=== PATIENT | female | born 1955 | race Two or more races ===

== ENCOUNTER 2022-08-24 11:39 | Emergency (ER) | payer MEDICARE, OTHER ==
[~2022-08-24] VITALS: Ht 154.9 cm; Wt 68.9 kg
[2022-08-24] MEDS ORDERED: ACET1CAP14 PO (14:44)
[2022-08-24] MEDS ORDERED: AUG875T PO (14:44)
[2022-08-24] MEDS ORDERED: ACETAMINOPHEN 500 MG TAB PO ONE (14:45)
[2022-08-24] MEDS ORDERED: LIDOCAINE 1% HCL (LOCAL ANESTH.) INJ 20ML MDV ID ONE (14:45)
[2022-08-24] MEDS ORDERED: cefTRIAXone SOD 1,000 MG VL IM ONE (14:45)
[2022-08-24 14:59] VITALS: BP 186/108
== END 2022-08-24 15:25 | disposition home or self-care (01) ==
LOC: ER 11:39
DX: K08.89 Other specified disorders of teeth and supporting structures (principal); E78.5 Hyperlipidemia, unspecified
CPT/HCPCS: 96372; 99283; J0696; J2001